=== PATIENT | male | born 1965 | race African-American/Black ===

== ENCOUNTER 2019-11-15 07:41 | Outpatient (CLI) | payer OTHER, SELFPAY ==
[2019-11-15 08:04] LABS: Basophils Percent Auto 0.5 % (0.2-1.2); Eosinophils Absolute Auto 0.1 K/mm3 (0-0.3); Eosinophils Percent Auto 0.8 % (0-4.4); Hemoglobin 15.3 g/dL (14.0-18.0); Immature Granulocyte Absolute 0.03 K/mm3 (0.00-0.031); Immature Granulocyte Percent A 0.5 % (0-0.5); Lymphocytes Absolute Auto 1.97 K/mm3 (0.9-3.2); Lymphocytes Percent Auto 31.9 % (18.3-44.2); Mean Corpuscular HGB Conc 31.9 g/dl (32-36); Mean Corpuscular Hemoglobin 26.8 pg (26-34); Mean Corpuscular Volume 84.2 fl (80-100); Mean Platelet Volume 9.3 fl (7.4-10.4); Monocytes Absolute Auto 0.7 K/mm3 (0.1-0.6); Neutrophils Absolute Auto 3.4 K/mm3 (1.3-6.7); Neutrophils Percent Auto 55.3 % (45.5-73.1); Platelet Count Result 238 k/mm3 (150-375); Red Cell Distribution Width 15.2 % (11.5-14.5); White Blood Count 6.2 K/mm3 (4.5-10.0)
[2019-11-15 08:28] LABS: Alanine Aminotransferase 18 U/L (4-50); Albumin Level 4.2 g/dL (3.5-5.1); Alkaline Phosphatase 65 U/L (38-126); Aspartate Amino Transferase 25 U/L (17-59); Bilirubin,Total 0.7 mg/dL (0.2-1.3); Blood Urea Nitrogen 10 mg/dL (9-20); Carbon Dioxide 32 mmol/L (22-30); Chloride 101 mmol/L (98-107); Cholesterol 180 mg/dL (0-200); Estimated Glomerular Filt Rate > 60; Glucose 135 mg/dL (75-110); HDL Direct 38 mg/dL; Potassium 4.2 mmol/L (3.4-5.0); Sodium 137 mmol/L (137-145); Triglycerides 170 mg/dL (<150)
[2019-11-15 08:40] LABS: LDL Cholesterol Direct 85 mg/dL
[2019-11-15 08:57] LABS: Hemoglobin A1C 7.3 % (<5.7); Prostate Specific Antigen 0.4 ng/mL (< OR = 4.0)
== END 2019-11-15 07:42 | disposition home or self-care (01) ==
PROVIDERS: PCP Family Medicine; Visit Provider Family Medicine
DX: Z00.00 Encounter for general adult medical examination without abnormal findings (principal); I10 Essential (primary) hypertension; E11.9 Type 2 diabetes mellitus without complications; E78.5 Hyperlipidemia, unspecified; Z12.5 Encounter for screening for malignant neoplasm of prostate
CPT/HCPCS: 36415; 80053; 80061; 83036; 84153; 84443; 85025

== ENCOUNTER 2020-05-22 09:44 | Outpatient (CLI) | payer OTHER, SELFPAY ==
[2020-05-26 20:26] LABS: Antithrombin III Activity 94 % normal (80-135)
[2020-05-27 04:23] LABS: Lupus dRVVT 1:1 Mix Interpreta Not Indicated; Lupus dRVVT Screen 44 sec (<=45); PTT-LA Screen 32 sec (<=40)
[2020-05-27 04:52] LABS: Anti Cardio Antibody IgM <12 MPL (<=12); Anti Cardiolipin Antibody IgA <11 APL (<=11); Anti Cardiolipin Antibody IgG <14 GPL (<=14)
[2020-05-27 22:17] LABS: Homocysteine 8.9 umol/L (<11.4)
== END 2020-05-22 09:45 | disposition home or self-care (01) ==
LOC: ANHLAB 09:46
PROVIDERS: PCP Family Medicine; Visit Provider Internal Medicine Hematology & Oncology
DX: I82.4Y1 Acute embolism and thrombosis of unspecified deep veins of right proximal lower extremity (principal)
CPT/HCPCS: 36415; 83090; 85300; 85303; 85306; 85613; 85730; 86146; 86147

== ENCOUNTER 2020-07-18 08:09 | Outpatient (CLI) | payer OTHER, SELFPAY ==
[2020-07-18 08:32] LABS: Basophils Percent Auto 0.7 % (0.2-1.2); Eosinophils Absolute Auto 0.1 K/mm3 (0-0.3); Hematocrit 50.4 % (42.0-52.0); Immature Granulocyte Absolute 0.01 K/mm3 (0.00-0.031); Immature Granulocyte Percent A 0.2 % (0-0.5); Lymphocytes Percent Auto 34.8 % (18.3-44.2); Mean Corpuscular HGB Conc 31.7 g/dl (32-36); Mean Corpuscular Hemoglobin 26.4 pg (26-34); Mean Corpuscular Volume 83.3 fl (80-100); Mean Platelet Volume 8.7 fl (7.4-10.4); Monocytes Absolute Auto 0.5 K/mm3 (0.1-0.6); Monocytes Percent Auto 9.1 % (2.6-8.5); Neutrophils Absolute Auto 3.1 K/mm3 (1.3-6.7); Neutrophils Percent Auto 54.2 % (45.5-73.1); Platelet Count Result 229 k/mm3 (150-375); Red Blood Count 6.05 M/mm3 (4.6-6.20); Red Cell Distribution Width 15.2 % (11.5-14.5); White Blood Count 5.7 K/mm3 (4.5-10.0)
[2020-07-18 09:35] LABS: Microalbumin Urine Random 15.5 mg/L (0-16.7)
[2020-07-18 10:08] LABS: Alanine Aminotransferase 20 U/L (4-50); Albumin Level 4.1 g/dL (3.5-5.1); Alkaline Phosphatase 66 U/L (38-126); Anion Gap 1 mmol/L (8-16); Aspartate Amino Transferase 25 U/L (17-59); Bilirubin,Total 0.7 mg/dL (0.2-1.3); Blood Urea Nitrogen 10 mg/dL (9-20); Calcium 9.3 mg/dL (8.4-10.2); Carbon Dioxide 35 mmol/L (22-30); Chloride 104 mmol/L (98-107); Cholesterol 193 mg/dL (0-200); Estimated Glomerular Filt Rate > 60; Glucose 126 mg/dL (75-110); HDL Direct 42 mg/dL; Potassium 4.1 mmol/L (3.4-5.0); Sodium 140 mmol/L (137-145); Triglycerides 190 mg/dL (<150)
[2020-07-18 10:10] LABS: Hemoglobin A1C 6.9 % (<5.7)
[2020-07-18 10:21] LABS: LDL Cholesterol Direct 91 mg/dL
[2020-07-18 10:41] LABS: Prostate Specific Antigen 0.3 ng/mL (< OR = 4.0)
[2020-07-18 12:11] LABS: Creatinine Urine 528.8 mg/dL; MALB Creatinine Ratio 2.9 mg/g (0-30)
[2020-07-23 10:37] LABS: Testosterone Free 52.8 pg/mL (35.0-155.0); Testosterone Total 242 ng/dL (250-1100)
== END 2020-07-18 08:10 | disposition home or self-care (01) ==
LOC: ANHLAB 08:11
PROVIDERS: PCP Family Medicine; Visit Provider Family Medicine
DX: Z00.00 Encounter for general adult medical examination without abnormal findings (principal); I10 Essential (primary) hypertension; R53.83 Other fatigue; E11.9 Type 2 diabetes mellitus without complications; E78.5 Hyperlipidemia, unspecified; Z12.5 Encounter for screening for malignant neoplasm of prostate
CPT/HCPCS: 36415; 80053; 80061; 82043; 83036; 84153; 84402; 84403; 84443; 85025; G0103

== ENCOUNTER 2020-08-15 11:13 | Outpatient (CLI) | payer OTHER, SELFPAY ==
[2020-08-19 06:28] LABS: FSH 8.2 mIU/mL (1.6-8.0); LH 5.6 mIU/mL (1.5-9.3)
[2020-08-19 12:40] LABS: Testosterone Free 36.7 pg/mL (35.0-155.0); Testosterone Total 221 ng/dL (250-1100)
== END 2020-08-15 11:14 | disposition home or self-care (01) ==
PROVIDERS: PCP Family Medicine; Visit Provider Family Medicine
DX: R79.89 Other specified abnormal findings of blood chemistry (principal)
CPT/HCPCS: 36415; 83001; 83002; 84402; 84403

== ENCOUNTER 2020-09-17 08:57 | Outpatient (CLI) | payer OTHER, SELFPAY | END 2020-09-17 08:58 | disposition home or self-care (01) | PROVIDERS: PCP Family Medicine | DX: Z23 Encounter for immunization (principal) | CPT/HCPCS: 0001A; 91300 ==

== ENCOUNTER 2020-10-08 08:55 | Outpatient (CLI) | payer OTHER, SELFPAY | END 2020-10-08 08:56 | disposition home or self-care (01) | LOC: ANHCOVIDVC 08:55 | PROVIDERS: PCP Family Medicine | DX: Z23 Encounter for immunization (principal) | CPT/HCPCS: 0002A; 91300 ==

== ENCOUNTER → 2020-10-13 08:12 | Outpatient (CLI) | payer OTHER, SELFPAY ==
[2020-10-13 20:45] LABS: SARS-CoV-2 RNA PCR Negative
== END ==
PROVIDERS: PCP Family Medicine; Visit Provider Family Medicine
DX: Z20.822 Contact with and (suspected) exposure to COVID-19 (principal)
CPT/HCPCS: C9803; U0003; U0005

== ENCOUNTER 2020-12-25 08:51 | Outpatient (CLI) | payer OTHER, SELFPAY ==
--- NOTE | 2021-01-18 08:14 | WPDSLEEPSTUD ---
Sleep Study Ordering Provider: Mikahil Mclaughlin MD Interpreting Physician: Camilla Cerda MD Height: 1.85 m Weight: 154.221 kg Body Mass Index: 44.9 Neck Circumference (inches): 19.5 [place]: 10 Reason for Sleep Study Hypersomnia, history of obstructive sleep apnea Sleep History Aurelio Webber is a 55 year old man with complaints of rare snoring and rare heartburn symptoms at night with coughing and belching. He always snores loudly, and always has trouble sleeping with a cold. He occasionally wakes up gasping for breath at night. He occasionally has breathing problems at night witnessed by others, occasionally sweats excessively at night, occasionally notices his heart pounding or beat irregularly at night, occasionally falls asleep in the day, and occasionally falls asleep involuntarily. He rarely falls asleep while driving. He rarely falls asleep while exerting physical effort. He does not have loss of muscle tone with strong emotion. He does not have daytime difficulties due to excessive sleepiness. He rarely feels paralyzed on waking or falling asleep. He does not have vivid dreamlike scenes upon awakening or falling asleep. He does not feel afraid to go to sleep. Does not have nightmares, does not have dream recall. He does not have racing thoughts, does not feel sad, depressed or anxious. He does not have muscular tension. He rarely notices parts of his body jerking. He does not kick at night. He rarely has crawling and aching feelings in his legs or any kind of leg pain at night. He does not have morning jaw pain and does not grind his teeth during sleep. He is not bothered by pain during the day or awakened by pain at night. He does not wake up feeling stiff in the morning with sore achy muscles or pain in the neck and spine. He has headaches. Normal bedtime 10:00 p.m., and he is not sure how long it takes him to fall asleep. He typically wakes 2 or 3 times at night to urinate. This happens in the middle of the night. He estimates getting 5-6 hours of sleep most nights. On the weekends he goes to bed later between 11:00 p.m. and midnight. He does not generally take naps. A short nap baby refreshing. He is usually drowsy on awakening. He feels better in the afternoon compared other times of day. Habits: he never smoked tobacco. Caffeine 2-3 per week. No alcohol or recreational drugs. [facility] Past Medical History Medical History Dyslipidemia Essential (primary) hypertension Hypogonadism IDDM (insulin dependent diabetes mellitus) Itching Migraine aura without headache Mild intermittent asthma without complication VALENTINO (obstructive sleep apnea) Right leg DVT 2019 - right popliteal and distal right femoral veins Surgical History Surgical History History of tonsillectomy and adenoidectomy (~1971) [place] teeth extracted (~1985) Family History Family History Grandparent Diabetes mellitus Social History Social History Smoking status: Never smoker Second hand tobacco smoke exposure: No Alcohol intake: never Substance use: never Substance use type: does not use Additional living arrangements comments: Fiance Gender identity (if verbalized by the patient): Male Medications Home Medications Medication Instructions Recorded Confirmed Type albuterol sulfate 90 mcg/actuation 2 puff INHALATION Q4-6H gm 07/31/19 10/15/20 History aerosol inhaler apple cider vinegar 500 mg tablet 500 mg PO DAILY tablet 07/31/19 10/15/20 History blood sugar diagnostic #10 each 07/31/19 10/15/20 History hydrochlorothiazide 25 mg tablet 25 mg PO DAILY 07/31/19 10/15/20 History hydroxyzine HCl 25 mg tablet 25 mg PO QID PRN 07/31/19 10/15/20 History lisinopril 40 mg tablet 4
[2021-01-18 08:50] VITALS: BMI 44.9
== END 2020-12-28 09:17 | disposition home or self-care (01) ==
LOC: ANHCSM 08:52
PROVIDERS: PCP Family Medicine; Visit Provider Family Medicine
DX: G47.33 Obstructive sleep apnea (adult) (pediatric) (principal); G47.31 Primary central sleep apnea; Z68.41 Body mass index [BMI] 40.0-44.9, adult
CPT/HCPCS: 95806

== ENCOUNTER 2021-05-28 09:12 | Outpatient (CLI) | payer OTHER, SELFPAY ==
--- NOTE | ~2021-05-28 | MR_ITS ---
EXAMINATION: MR brain/brain stem wo con DATE: 05/28/2021 10:05 INDICATION: Migraine without aura TECHNIQUE: Magnetic resonance imaging (MRI) of the brain and brainstem was performed without intraven ous contrast. Sequences included sagittal and axial T1-weighted SE, axial diffusion-weighted FS SE, a xial T2*-weighted GRE, axial T2-weighted FLAIR, and axial T2-weighted FSE. Apparent diffusion coeffic ient (ADC) maps were created. COMPARISON: None. FINDINGS: There are no areas of restricted diffusion to suggest acute infarction. No intracranial hemorrhage or abnormal intracranial mass lesion. There is a relatively symmetric small regions of nonspecific incr eased T2-weighted signal intensity likely related to chronic small vessel ischemic disease which surr ounds a few small foci of cystic encephalomalacia in the bilateral peritrigonal white matter. There a re no intraparenchymal signal abnormalities seen on the other pulse sequences. The ventricles are sym metric and normal in size. There are no abnormal extra-axial fluid collections. Flow voids are seen i n the cerebral arteries on the T2-weighted sequences consistent with their expected patency. Mild muc operiosteal thickening the bilateral maxillary, ethmoid and frontal sinuses. Visualized orbits and so ft tissues are unremarkable. IMPRESSION: 1. Nonspecific peritrigonal white matter hypoattenuation surrounding a few small foci of cystic encep halomalacia, likely sequela of chronic small vessel ischemic disease. Reviewed, dictated and finalized at location A. TENANCE TEAM LEADER IMPRESSION: 1. Nonspecific peritrigonal white matter hypoattenuation surrounding a few smal l foci of cystic encephalomalacia, likely sequela of chronic small vessel ische cindy disease.
== END 2021-05-28 09:13 | disposition home or self-care (01) ==
LOC: ANHIMG 09:18
PROVIDERS: PCP Family Medicine; Visit Provider Psychiatry & Neurology Neurology
DX: G43.009 Migraine without aura, not intractable, without status migrainosus (principal); G93.89 Other specified disorders of brain
CPT/HCPCS: 70551

== ENCOUNTER 2021-07-16 14:47 | Outpatient (CLI) | payer OTHER, SELFPAY ==
--- NOTE | 2021-07-16 15:01 | ECHO_ITS ---
Patient Info Name: Aurelio Webber Age: 56 years : 1965 Gender: Male Ht: 73 in Wt: 320 lbs BSA: 2.80 m2 HR: 85 bpm BP: 159 / 106 mmHg Technical Quality: Fair Exam Date: 07/16/2021 3:13 PM Exam Location: [facility] Patient Status: Outpatient Admit Date: 07/16/2021 Staff Ordering Physician: Camilla Cerda MD Assembly Line Robot Operator: Muriel Cunha RDCS Attending Provider: Camilla Cerda MD Referring Physician: Prashant CANALES; Exam Type: CA echo doppler color flow Study Info Indications - sleep apnea Complete two-dimensional, color flow and Doppler transthoracic echocardiogram is performed. Summary 1. Complete two-dimensional, color flow and Doppler transthoracic echocardiogram is performed. 2. Left ventricular chamber dimension is mildly enlarged. 3. Left ventricular systolic function is severely reduced, estimated at 30-35%. 4. There is mildly increased left ventricular wall thickness. 5. The left ventricular diastolic function is grade I diastolic dysfunction. 6. E/e' 6 is not elevated. 7. Left atrial chamber dimension is mildly enlarged. 8. No pulmonary hypertension, estimated pulmonary arterial systolic pressure is 27 mmHg. Left Ventricle E/e' 6 is not elevated. Left ventricular chamber dimension is mildly enlarged. Left ventricular systolic function is severely reduced, estimated at 30-35%. There is mildly increased left ventricular wall thickness. The left ventricular diastolic function is grade I diastolic dysfunction. Right Ventricle Right ventricular chamber dimension is normal. Right ventricular systolic function is normal. Left Atria Left atrial chamber dimension is mildly enlarged. Right Atria Right atrial chamber dimension is normal. Aortic Valve The aortic valve is trileaflet. There is no aortic valve stenosis. There is no aortic valve regurgitation. Pulmonic Valve There is no pulmonic regurgitation. Mitral Valve There is no mitral valve stenosis. There is no mitral valve regurgitation. Tricuspid Valve There is no tricuspid valve regurgitation. No pulmonary hypertension, estimated pulmonary arterial systolic pressure is 27 mmHg. Pericardium/Pleural There is no pericardial effusion. Inferior Vena Cava Normal inferior vena cava with >50% collapse upon inspiration consistent with normal right atrial pressure, 5 mmHg. Aorta The aortic root size at the sinus of Valsalva is normal. Left Ventricular Outflow Tract Name Value Normal LVOT 2D LVOT Diameter 2.2 cm LVOT Doppler LVOT Peak Gradient 3 mmHg LVOT Mean Gradient 2 mmHg LVOT VTI 15 cm LVOT VTI/AV VTI Ratio 0.8 LVOT Stroke Volume 55 ml LVOT CO 13.2 l/min LVOT CI 4.7 l/min/m2 Pulmonic Valve Name Value Normal
== END 2021-07-16 14:48 | disposition home or self-care (01) ==
LOC: ANHCARD 14:49
PROVIDERS: PCP Family Medicine; Visit Provider Internal Medicine Critical Care Medicine
DX: R06.02 Shortness of breath (principal); I51.7 Cardiomegaly
CPT/HCPCS: 93306

== ENCOUNTER 2021-07-23 08:15 | Outpatient (CLI) | payer OTHER, SELFPAY ==
--- NOTE | 2021-08-08 20:33 | WPDSLEEPSTUD ---
Sleep Study Date of Study: 07/23/21 <Becca Galvan DO - Last Filed: 08/10/21 15:51> Ordering Provider: Camilla Cerda MD <Becca Galvan - Last Filed: 08/10/21 15:51> Interpreting Physician: Becca Galvan DO <Becca Galvan - Last Filed: 08/10/21 15:51> Sleep Study Type: CPAP Titration <Becca Galvan DO - Last Filed: 08/10/21 15:51> Height: 1.85 m <Becca Galvan DO - Last Filed: 08/10/21 15:51> Weight: 145.15 kg <Becca Galvan DO - Last Filed: 08/10/21 15:51> Body Mass Index: 42.2 <Becca Galvan - Last Filed: 08/10/21 15:51> Neck Circumference (inches): 18.5 <Becca Galvan DO - Last Filed: 08/10/21 15:51> [place]: 11 <Becca Galvan DO - Last Filed: 08/10/21 15:51> Reason for Sleep Study The patient had a home sleep test using [employer] on December 25, 2020 that showed severe central sleep apnea with an AHI of 59, central AHI 42.6, desaturation to 64%, 30% of the study spent below 88%, loud snoring and Maxx-Emerson respirations present 16% of the night. <Becca Galvan DO - Last Filed: 08/10/21 15:51> Sleep History Aurelio Webber is a 55 year old man with complaints of rare snoring and rare heartburn symptoms at night with coughing and belching. He always snores loudly, and always has trouble sleeping with a cold. He occasionally wakes up gasping for breath at night. He occasionally has breathing problems at night witnessed by others, occasionally sweats excessively at night, occasionally notices his heart pounding or beat irregularly at night, occasionally falls asleep in the day, and occasionally falls asleep involuntarily. He rarely falls asleep while driving. He rarely falls asleep while exerting physical effort. He does not have loss of muscle tone with strong emotion. He does not have daytime difficulties due to excessive sleepiness. He rarely feels paralyzed on waking or falling asleep. He does not have vivid dreamlike scenes upon awakening or falling asleep. He does not feel afraid to go to sleep. Does not have nightmares, does not have dream recall. He does not have racing thoughts, does not feel sad, depressed or anxious. He does not have muscular tension. He rarely notices parts of his body jerking. He does not kick at night. He rarely has crawling and aching feelings in his legs or any kind of leg pain at night. He does not have morning jaw pain and does not grind his teeth during sleep. He is not bothered by pain during the day or awakened by pain at night. He does not wake up feeling stiff in the morning with sore achy muscles or pain in the neck and spine. He has headaches. Normal bedtime 10:00 p.m., and he is not sure how long it takes him to fall asleep. He typically wakes 2 or 3 times at night to urinate. This happens in the middle of the night. He estimates getting 5-6 hours of sleep most nights. On the weekends he goes to bed later between 11:00 p.m. and midnight. He does not generally take naps. A short nap baby refreshing. He is usually drowsy on awakening. He feels better in the afternoon compared other times of day. Habits: he never smoked tobacco. Caffeine 2-3 per week. No alcohol or recreational drugs. <Becca Galvan DO - Last Filed: 08/10/21 15:51> [facility] Past Medical History Medical History: Medical History (Updated 08/08/21 @ 21:04 by Becca Galvan DO) Central sleep apnea with Maxx-Emerson respiration Dyslipidemia Essential (primary) hypertension Hypogonadism IDDM (insulin dependent diabetes mellitus) Itching Migraine aura without headache Mild intermittent asthma without complication VALENTINO (obstructive sleep apnea) Right leg DVT 2019 - right popliteal and distal right femoral veins <Becca Galvan DO - Last Filed: 08/10/21 15:51> Surgical History Surgical History: Surgical History (Reviewed 08/08/21 @
[2021-08-10 15:44] VITALS: BMI 42.2
== END 2021-07-24 07:51 | disposition home or self-care (01) ==
LOC: ANHCSM 08:18
PROVIDERS: PCP Family Medicine; Visit Provider Internal Medicine Critical Care Medicine
DX: R06.3 Periodic breathing (principal); I50.9 Heart failure, unspecified
CPT/HCPCS: 95811

== ENCOUNTER 2021-09-01 08:11 | Outpatient (CLI) | payer OTHER, SELFPAY ==
[2021-09-01 16:45] LABS: Basophils Percent Auto 0.5 % (0.2-1.2); Eosinophils Absolute Auto 0.1 K/mm3 (0-0.3); Hematocrit 53.3 % (42.0-52.0); Hemoglobin 16.5 g/dL (14.0-18.0); Immature Granulocyte Absolute 0.02 K/mm3 (0.00-0.031); Immature Granulocyte Percent A 0.3 % (0-0.5); Lymphocytes Absolute Auto 1.85 K/mm3 (0.9-3.2); Lymphocytes Percent Auto 30.3 % (18.3-44.2); Mean Corpuscular Volume 87.2 fl (80-100); Mean Platelet Volume 9.4 fl (7.4-10.4); Monocytes Absolute Auto 0.6 K/mm3 (0.1-0.6); Neutrophils Absolute Auto 3.6 K/mm3 (1.3-6.7); Neutrophils Percent Auto 58.9 % (45.5-73.1); Platelet Count Result 205 k/mm3 (150-375); Red Blood Count 6.11 M/mm3 (4.6-6.20); Red Cell Distribution Width 16.4 % (11.5-14.5); White Blood Count 6.1 K/mm3 (4.5-10.0)
[2021-09-01 17:13] LABS: LDL Cholesterol Direct 74 mg/dL
[2021-09-01 17:15] LABS: Alanine Aminotransferase 18 U/L (4-50); Albumin Level 4.3 g/dL (3.5-5.1); Alkaline Phosphatase 71 U/L (38-126); Anion Gap 9 mmol/L (8-16); Aspartate Amino Transferase 26 U/L (17-59); Bilirubin,Total 0.7 mg/dL (0.2-1.3); Blood Urea Nitrogen 11 mg/dL (9-20); Calcium 8.9 mg/dL (8.4-10.2); Carbon Dioxide 25 mmol/L (22-30); Chloride 105 mmol/L (98-107); Cholesterol 190 mg/dL (0-200); Estimated Glomerular Filt Rate > 60; Glucose 118 mg/dL (65-110); HDL Direct 39 mg/dL; Magnesium 2.1 mg/dL (1.6-2.3); Sodium 139 mmol/L (137-145); Triglycerides 208 mg/dL (<150)
[2021-09-01 17:18] LABS: Hemoglobin A1C 6.9 % (<5.7)
[2021-09-01 17:19] LABS: Vitamin D 25 Hydroxy 32.4 ng/mL
[2021-09-01 17:34] LABS: Prostate Specific Antigen 0.6 ng/mL (< OR = 4.0)
[2021-09-01 17:42] LABS: Creatinine Urine > 346.5 mg/dL
[2021-09-01 17:46] LABS: Microalbumin Urine Random 20.3 mg/L (0-16.7)
== END 2021-09-01 08:12 | disposition home or self-care (01) ==
PROVIDERS: PCP Family Medicine; Visit Provider Family Medicine
DX: Z00.00 Encounter for general adult medical examination without abnormal findings (principal); I10 Essential (primary) hypertension; E11.9 Type 2 diabetes mellitus without complications; E55.9 Vitamin D deficiency, unspecified; Z12.5 Encounter for screening for malignant neoplasm of prostate; I50.9 Heart failure, unspecified; E78.5 Hyperlipidemia, unspecified
CPT/HCPCS: 36415; 80053; 80061; 82043; 82306; 83036; 83735; 84153; 85025; G0103

== ENCOUNTER 2021-09-20 18:24 | Emergency (ER) | payer OTHER, SELFPAY ==
[2021-09-20] VITALS (19 sets, daily range): BP systolic 141–177; BP diastolic 85–138; PULSE 71–102; RESP 10–30; TEMP 36.4; O2SAT 96–100
--- NOTE | ~2021-09-20 | CT_ITS ---
EXAMINATION: CT abdomen pelvis w con EXAM DATE: 09/20/2021 22:49 INDICATION: Abdominal pain, diarrhea 1 month. TECHNIQUE: Spiral CT of the abdomen and pelvis was performed following intravenous injection of 100 m L Omnipaque 350. Axial, coronal and sagittal images of the abdomen and pelvis were reviewed. The do se-length product (DLP) for this examination was 1618.07 mGy-cm. The exposure was tailored according to patient size (auto mA exposure control), and iterative reconstruction (ASIR) was used as addition al dose reduction technique. Comparison is made to prior examination from 05/31/2016. FINDINGS: The liver, spleen, adrenal glands and pancreas are unremarkable. Gallbladder is unremarkab le. No biliary obstruction. Portal and splenic veins are patent. Kidneys enhance symmetrically. T here is no hydronephrosis. The prostate is unremarkable. The bladder is unremarkable. There is no retroperitoneal or pelvic lymphadenopathy. The appendix is normal. The stomach and small bowel are unremarkable. There is expected amount of c olonic stool. No free intraperitoneal gas. The heart is normal in size. There are no pericardial or pleural effusions. The lung bases are unremarkable. There are no osteoblastic or osteolytic les ions identified. IMPRESSION: 1. No acute intra-abdominal findings. Reviewed, dictated and finalized at location G.
[2021-09-20 21:54] LABS: Basophils Percent Auto 0.5 % (0.2-1.2); Eosinophils Absolute Auto 0.1 K/mm3 (0-0.3); Eosinophils Percent Auto 0.6 % (0-4.4); Hematocrit 50.7 % (42.0-52.0); Immature Granulocyte Absolute 0.02 K/mm3 (0.00-0.031); Immature Granulocyte Percent A 0.3 % (0-0.5); Lymphocytes Percent Auto 32.1 % (18.3-44.2); Mean Corpuscular HGB Conc 31.6 g/dl (32-36); Mean Corpuscular Hemoglobin 27.6 pg (26-34); Mean Corpuscular Volume 87.6 fl (80-100); Monocytes Absolute Auto 0.8 K/mm3 (0.1-0.6); Monocytes Percent Auto 10.4 % (2.6-8.5); Neutrophils Absolute Auto 4.4 K/mm3 (1.3-6.7); Neutrophils Percent Auto 56.1 % (45.5-73.1); Platelet Count Result 213 k/mm3 (150-375); Red Blood Count 5.79 M/mm3 (4.6-6.20); Red Cell Distribution Width 15.5 % (11.5-14.5); White Blood Count 7.8 K/mm3 (4.5-10.0)
[2021-09-20 22:08] LABS: Alanine Aminotransferase 18 U/L (4-50); Albumin Level 4.1 g/dL (3.5-5.1); Alkaline Phosphatase 56 U/L (38-126); Anion Gap 4 mmol/L (8-16); Aspartate Amino Transferase 27 U/L (17-59); Bilirubin,Total 0.6 mg/dL (0.2-1.3); Blood Urea Nitrogen 12 mg/dL (9-20); Calcium 8.8 mg/dL (8.4-10.2); Carbon Dioxide 32 mmol/L (22-30); Chloride 104 mmol/L (98-107); Estimated CRCL calculation 135 ml/min; Estimated Glomerular Filt Rate > 60; Glucose 141 mg/dL (65-110); Lipase 227 U/L (23-300); Potassium 3.9 mmol/L (3.4-5.0); Sodium 140 mmol/L (137-145)
--- NOTE | 2021-09-20 22:22 | ED.GENADULT ---
HPI - General Adult General Chief complaint: Abdominal Pain Stated complaint: diffuse abd pain Time Seen by Provider: 09/20/21 21:40 Source: patient Mode of arrival: ambulatory Limitations: no limitations History of Present Illness HPI narrative: Patient is a 56 y/o male, with Hx of HTN and DM, who presents to the ED with report of bilateral flank/abdominal pain X 1 month. Patient reports he has had pain in his lateral flanks radiating around to the bilateral lower quadrant of his abdomen x1 month. He states the pain is an intermittent dull pain, but is occasionally crampy and aggravated when trying to strain or sit up from a chair. No association of pain with food. He has not tried anything for this pain. He also reports having watery diarrhea for 1 month. He states he has had several episodes of diarrhea per day. He has not tried anything for this either. Denies any fever, chills, nausea, vomiting, rectal bleeding, shortness of breath, cough, congestion, chest pain, palpitations, urinary sx's. No recent antibiotics. No recent travel. Related Data Home Medications Medication Instructions Recorded Confirmed albuterol sulfate 90 mcg/actuation 2 puff INHALATION Q4-6H gm 07/31/19 08/17/21 aerosol inhaler apple cider vinegar 500 mg tablet 500 mg PO DAILY tablet 07/31/19 08/17/21 apple cider vinegar 300 mg tablet 450 mg PO DAILY tablet 11/19/19 08/17/21 ascorbic acid (vitamin C) 1,000 mg 500 mg PO DAILY tablet 11/19/19 08/17/21 tablet cinnamon bark 500 mg capsule 100 mg PO DAILY cap 11/19/19 08/17/21 elderberry fruit 200 mg capsule 50 mg PO cap 11/19/19 08/17/21 vitamin B complex 1 tablet PO DAILY tablet 11/19/19 08/17/21 insulin glargine 100 unit/mL (3 22 unit SUBCUT DAILY ml 07/07/20 08/17/21 mL) subcutaneous pen apixaban 5 mg tablet 5 mg PO Q12H tablet 07/06/21 08/17/21 Allergies Allergy/AdvReac Type Severity Reaction Status Date / Time No Known Allergies Allergy Verified 08/17/21 16:02 Review of Systems Review of Systems: CONSTITUTIONAL: Denies fever, chills, or sweats. ENT: Denies congestion. CARDIOVASCULAR: Denies chest pain, palpitations. RESPIRATORY: Denies dyspnea. GASTROINTESTINAL: Reports bilateral flank/abdominal pain, diarrhea. Denies nausea, vomiting. GENITOURINARY: Denies dysuria or hematuria. MUSCULOSKELETAL: Denies back pain, joint pain, or myalgia. NEUROLOGIC: Denies headache, numbness, or weakness. 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 2020 and 2018 Right leg DVT 2018 - right popliteal and distal right femoral veins Surgical History Surgical History History of tonsillectomy and adenoidectomy (~1971) [place] teeth extracted (~1985) Family History Family History Grandparent Diabetes mellitus Social History Social History Second hand tobacco smoke exposure: No Alcohol intake: never Substance use: never Substance use type: does not use Additional living arrangements comments: Fiance Gender identity (if verbalized by the patient): Male Sexual Orientation (if Verbalized by the Patient): Straight or Heterosexual Exam Narrative: GENERAL: Well appearing, obese, non-toxic, in no acute distress. HEAD: Normocephalic, atraumatic. NECK: Supple. No adenopathy, no masses. RESPIRATORY: Airway patent, respirations nonlabored. Clear to auscultation bilaterally,
[2021-09-20 23:19] LABS: Add Urine Microscopic? YES; Appearance Urine Clear (Clear); Bilirubin Urine Negative (Negative); Blood Urine Negative (Negative); Color Urine Yellow (Yellow); Glucose Urine UA Negative (Negative); Ketones Urine Negative (Negative); Leukocyte Esterase Ur Negative LEU/UL (Negative); Mucus Urine Few /lpf; Nitrate Urine Negative (Negative); Protein Urine Negative (Negative); RBC Urine 0-2 /hpf (0-2); Specific Grav Ur 1.029 (1.001-1.035); Squamous Epithelial Cell Urine Rare /hpf (Few); Urobilinogen Urine Negative mg/dL (<2.0); WBC Urine 0-3 /hpf
[2021-09-21] VITALS (14 sets, daily range): BP systolic 132–151; BP diastolic 88–101; PULSE 72–90; RESP 12–22; O2SAT 94–100
--- NOTE | 2021-09-21 02:34 | ECG_ITS ---
Measurements Intervals [place] Rate: 68 P: 48 WV: 146 QRS: -9 QRSD: 117 T: 112 QT: 374 QTc: 400 Interpretive Statements SINUS RHYTHM INFERIOR MYOCARDIAL INFARCTION , PROBABLY OLD [40+ ms Q WAVE AND/OR ST/T ABNORMALITY IN II/aVF] CANNOT RULE OUT ANTERIOR INFARCTION NONSPECIFIC T-WAVE ABNORMALITY ABNORMAL ECG NO PREVIOUS ECG AVAILABLE FOR COMPARISON Electronically Signed On 09-21-2021 11:17:27 CDT by Quinn Scott M.D.
== END 2021-09-21 01:45 | disposition home or self-care (01) ==
PROVIDERS: Emergency Provider Emergency Medicine; PCP Family Medicine
DX: R10.9 Unspecified abdominal pain (principal); R19.7 Diarrhea, unspecified; E78.5 Hyperlipidemia, unspecified; I10 Essential (primary) hypertension; G47.31 Primary central sleep apnea; R06.3 Periodic breathing; Z86.718 Personal history of other venous thrombosis and embolism; Z79.4 Long term (current) use of insulin; Z79.01 Long term (current) use of anticoagulants; Z79.899 Other long term (current) drug therapy
CPT/HCPCS: 36415; 74177; 80053; 81001; 83690; 85025; 93005; 99284; Q9967

== ENCOUNTER 2023-08-16 09:03 | Outpatient (CLI) | payer OTHER, SELFPAY ==
[2023-08-16 11:38] LABS: Basophils Percent Auto 0.4 % (0.2-1.2); Eosinophils Percent Auto 0.9 % (0-4.4); Hematocrit 48.2 % (42.0-52.0); Hemoglobin 15.1 g/dL (14.0-18.0); Immature Granulocyte Absolute 0.01 K/mm3 (0.00-0.031); Immature Granulocyte Percent A 0.2 % (0-0.5); Lymphocytes Absolute Auto 1.65 K/mm3 (0.9-3.2); Lymphocytes Percent Auto 35.2 % (18.3-44.2); Mean Corpuscular HGB Conc 31.3 g/dl (32-36); Mean Corpuscular Hemoglobin 26.9 pg (26-34); Mean Corpuscular Volume 85.9 fl (80-100); Mean Platelet Volume 10.3 fl (7.4-10.4); Monocytes Absolute Auto 0.5 K/mm3 (0.1-0.6); Monocytes Percent Auto 10.4 % (2.6-8.5); Neutrophils Absolute Auto 2.5 K/mm3 (1.3-6.7); Neutrophils Percent Auto 52.9 % (45.5-73.1); Platelet Count Result 202 k/mm3 (150-375); Red Blood Count 5.61 M/mm3 (4.6-6.20); Red Cell Distribution Width 14.9 % (11.5-14.5); White Blood Count 4.7 K/mm3 (4.5-10.0)
[2023-08-16 12:20] LABS: Creatinine Urine 256.3 mg/dL
[2023-08-16 12:26] LABS: MALB Creatinine Ratio 4.3 mg/g (0-30); Microalbumin Urine Random 11.1 mg/L (0-16.7)
[2023-08-16 12:33] LABS: Vitamin D 25 Hydroxy 16.8 ng/mL
[2023-08-16 12:48] LABS: Alanine Aminotransferase 16 U/L (6-50); Albumin Level 3.8 g/dL (3.5-5.1); Alkaline Phosphatase 60 U/L (38-126); Anion Gap 3 mmol/L (8-16); Aspartate Amino Transferase 48 U/L (17-59); Bilirubin,Total 0.8 mg/dL (0.2-1.3); Blood Urea Nitrogen 10 mg/dL (9-20); Carbon Dioxide 31 mmol/L (22-30); Chloride 106 mmol/L (98-107); Cholesterol 162 mg/dL (0-200); Estimated Glomerular Filt Rate > 60; Glucose 102 mg/dL (65-110); HDL Direct 43 mg/dL; Sodium 140 mmol/L (137-145); Triglycerides 92 mg/dL (<150)
[2023-08-16 13:02] LABS: LDL Cholesterol Direct 84 mg/dL
[2023-08-16 13:19] LABS: Prostate Specific Antigen 0.5 ng/mL (< OR = 4.0)
[2023-08-16 14:32] LABS: Hemoglobin A1C 7.1 % (<5.7)
== END 2023-08-16 09:04 | disposition home or self-care (01) ==
PROVIDERS: PCP Family Medicine; Visit Provider Family Medicine
DX: Z00.00 Encounter for general adult medical examination without abnormal findings (principal); E78.5 Hyperlipidemia, unspecified; E53.8 Deficiency of other specified B group vitamins; I10 Essential (primary) hypertension; E11.9 Type 2 diabetes mellitus without complications; E55.9 Vitamin D deficiency, unspecified; Z12.5 Encounter for screening for malignant neoplasm of prostate
CPT/HCPCS: 36415; 80053; 80061; 82043; 82306; 82607; 83036; 84153; 84443; 85025; G0103